=== PATIENT | male | born 1965 | race Two or more races ===

== ENCOUNTER 2024-01-30 06:05 | Day surgery (SDC) | payer OTHER ==
[~2024-01-30 06:05] MED LIST: SYNTHROID50 MCG PO
[2024-01-30] MEDS ORDERED: CEFAZOLIN SODIUM 1,000 MG VIAL ONE (08:02)
[2024-01-30] MEDS ORDERED: BUPIVACAINE HCL/Mpf 0.5% 10ML VIAL ONE (09:47)
[2024-01-30] MEDS ORDERED: SUGAMMADEX SODIUM 200 MG/2 ML VIAL IV ONE (10:57)
== END 2024-01-30 13:30 | disposition home or self-care (01) ==
LOC: CIR.AMB 06:05
PROVIDERS: ATTEND Orthopaedic Surgery Hand Surgery
DX: D21.11 Benign neoplasm of connective and other soft tissue of right upper limb, including shoulder (principal); R22.31 Localized swelling, mass and lump, right upper limb

== ENCOUNTER 2024-06-11 16:59 | Inpatient (IN) | payer OTHER ==
[~2024-06-11] VITALS: Ht 185.4 cm; Wt 104.3 kg
[2024-06-11 17:41] LABS: PH,URINE 5.5 (5.0-8.0); URINE APPEARANCE Clear; URINE BILIRRUBIN Negative (NEGATIVE); URINE BLOOD Negative; URINE COLOR Yellow; URINE GLUCOSE Negative (NEGATIVE); URINE LEUKOCYTE Negative; URINE NITRATE Negative; URINE PROTEIN Negative (NEGATIVE); URINE UROBILINOGEN 0.2 E.U./dl
[2024-06-11 17:44] LABS: URINE BACTERIA 4.8 uL (0.0-1933); URINE EPITHELIAL CELLS 3.4 uL (0.0-38.8); URINE KETONE 40 (NEGATIVE); URINE RBC 2.3 uL (0.0-20.8)
[2024-06-11 17:45] LABS: URINE CAST 0.44 uL (0.0-1.40); URINE WBC 1.1 uL (0.0-23.2)
[2024-06-11] MEDS ORDERED: SODIUM CHLORIDE 0.45 % 1,000 ML IV SCH (17:45)
[2024-06-11 17:46] LABS: ERYTHROCYTE SEDIMENTATION RATE 65 mm/hr; HEMATOCRIT 41.2 % (39.0-48.0); HEMOGLOBIN 14.1 g/dL (13-16.00); MEAN CELL VOLUME 84.4 fL (80.0-100.00); MEAN CORPUSCULAR HEMOGLOBIN 28.9 pg (27.00-32.0); MEAN CORPUSCULAR HGB CONC 34.3 g/dl (32.0-36.0); PLATELET COUNT 542 K/uL (150-450); RED BLOOD COUNT 4.88 M/uL (4.00-6.00); RED CELL DISTRIBUTION WIDTH 14.6 % (11.5-14.5)
[2024-06-11] MEDS ORDERED: MORPHINE SULFATE 4 MG/ML CARTRIDGE IV PRN (18:00)
[2024-06-11] MEDS ORDERED: ACETAMINOPHEN 500 MG GEL..CAP PO PRN (18:00)
[2024-06-11] MEDS ORDERED: KETOROLAC TROMETHAMINE 30 MG VIAL IV PRN (18:00)
[2024-06-11 18:03] LABS: INR 1.09; PARTIAL THROMBOPLASTIN TIME 29.4 SECONDS (22.0-34.0); PROTHROMBIN TIME 11.8 SECONDS (9.0-11.5)
[2024-06-11 18:34] LABS: ALBUMIN 3.6 gm/dL (3.4-5.0); BILIRUBIN TOTAL 0.77 mg/dL (0.3-1.2); CALCIUM 9.7 mg/dL (8.5-10.1); CREATININE SERUM 1.37 mg/dL (0.70-1.30); GFR 53.75; GLOBULINA 4.4 G/DL (2.4-3.5); POTASSIUM 4.33 mEq/L (3.5-5.1); PROSTATIC SPECIFIC ANTIGEN 3.43 NG/ML (0.010-4.00); TSH 4.13 uIU/mL (0.358-3.74)
[2024-06-11] MEDS ORDERED: VANCOMYCIN HCL 1,000 MG VIAL IV SCH (21:00)
[2024-06-12] MEDS ORDERED: METHYLPREDNISOLONE SOD SUCC 40 MG VIAL IV SCH (01:00)
[2024-06-12 01:43] VITALS: BP 131/80; O2SAT 97
[2024-06-12] MEDS ORDERED: LEVOTHYROXINE SODIUM 200 MCG TABLET PO SCH (06:00)
[2024-06-12 08:20] VITALS: BP 121/67; O2SAT 97
[2024-06-12] MEDS ORDERED: CEFTRIAXONE SODIUM 2,000 MG VIAL IV SCH (09:00)
[2024-06-12] MEDS ORDERED: PANTOPRAZOLE SODIUM 40 MG/VIAL VIAL IV SCH (09:00)
[2024-06-12] MEDS ORDERED: ENOXAPARIN SODIUM 40 MG/0.4 ML SYRINGE SUBCUTANEO SCH (09:00)
[2024-06-12 17:23] VITALS: BP 121/73
[2024-06-13 02:36] VITALS: BP 119/72; O2SAT 96
[2024-06-13 06:35] LABS: HEMATOCRIT 36.6 % (39.0-48.0); HEMOGLOBIN 12.1 g/dL (13-16.00); MEAN CELL VOLUME 85.6 fL (80.0-100.00); MEAN CORPUSCULAR HEMOGLOBIN 28.3 pg (27.00-32.0); MEAN CORPUSCULAR HGB CONC 33.1 g/dl (32.0-36.0); PLATELET COUNT 452 K/uL (150-450); RED BLOOD COUNT 4.27 M/uL (4.00-6.00); RED CELL DISTRIBUTION WIDTH 14.2 % (11.5-14.5)
[2024-06-13 06:59] LABS: ERYTHROCYTE SEDIMENTATION RATE > 130 mm/hr
[2024-06-13 07:13] LABS: ALBUMIN 2.9 gm/dL (3.4-5.0); BILIRUBIN TOTAL 0.38 mg/dL (0.3-1.2); CREATININE SERUM 1.11 mg/dL (0.70-1.30); GFR 68.53; GLOBULINA 3.8 G/DL (2.4-3.5); MAGNESIUM 2.3 mg/dL (1.8-2.4); PHOSPHOROUS 3.3 mg/dL (2.5-4.9); POTASSIUM 4.83 mEq/L (3.5-5.1); TOTAL PROTEIN 6.7 gm/dL (6.4-8.2); URIC ACID 8.5 mg/dL (3.5-8.5)
[2024-06-13 07:14] LABS: C-REACTIVE PROTEIN 16.3 MG/DL (0.00-0.29)
[2024-06-13] MEDS ORDERED: METHYLPREDNISOLONE SOD SUCC 40 MG VIAL IV SCH ×2 (09:00→21:00)
[2024-06-13 09:39] VITALS: BP 126/76
[2024-06-13 18:56] VITALS: BP 143/97
[2024-06-14 02:03] VITALS: BP 119/70
[2024-06-14 08:54] VITALS: BP 106/60
[2024-06-14 17:05] LABS: HEMATOCRIT 39.3 % (39.0-48.0); HEMOGLOBIN 13.1 g/dL (13-16.00); MEAN CELL VOLUME 84.9 fL (80.0-100.00); MEAN CORPUSCULAR HEMOGLOBIN 28.2 pg (27.00-32.0); MEAN CORPUSCULAR HGB CONC 33.2 g/dl (32.0-36.0); PLATELET COUNT 517 K/uL (150-450); RED BLOOD COUNT 4.63 M/uL (4.00-6.00); RED CELL DISTRIBUTION WIDTH 14.6 % (11.5-14.5)
[2024-06-14 17:28] LABS: ALBUMIN 2.9 gm/dL (3.4-5.0); BILIRUBIN TOTAL 0.32 mg/dL (0.3-1.2); CALCIUM 9.3 mg/dL (8.5-10.1); CREATININE SERUM 1.28 mg/dL (0.70-1.30); GFR 58.13; GLOBULINA 3.8 G/DL (2.4-3.5); MAGNESIUM 2.3 mg/dL (1.8-2.4); PHOSPHOROUS 3.2 mg/dL (2.5-4.9); POTASSIUM 5.38 mEq/L (3.5-5.1); TOTAL PROTEIN 6.7 gm/dL (6.4-8.2)
[2024-06-14 17:31] LABS: C-REACTIVE PROTEIN 7.5 MG/DL (0.00-0.29)
[2024-06-14 17:36] VITALS: BP 134/79
[2024-06-15 02:27] VITALS: BP 95/60; O2SAT 99
[2024-06-15 09:16] VITALS: BP 120/77
[2024-06-15 18:14] VITALS: BP 138/86; O2SAT 98
== END 2024-06-15 19:55 | disposition home or self-care (01) | DRG 554 ==
LOC: MEDI 16:59 → MEDJ 16:59
PROVIDERS: Internal Medicine Infectious Disease; ADMIT Internal Medicine; ATTEND Internal Medicine
PROC: BQ3DZZZ Magnetic Resonance Imaging (MRI) of Right Lower Leg (ICD-10-PCS; principal; 2024-06-11)
DX: M17.11 Unilateral primary osteoarthritis, right knee (principal); L03.116 Cellulitis of left lower limb; L03.115 Cellulitis of right lower limb; E03.9 Hypothyroidism, unspecified; N18.9 Chronic kidney disease, unspecified; E78.5 Hyperlipidemia, unspecified; M10.9 Gout, unspecified
CPT/HCPCS: 240; 73221

== ENCOUNTER 2025-04-12 16:04 | Emergency (ER) | payer OTHER ==
[~2025-04-12] VITALS: Ht 185.4 cm; Wt 104.3 kg
[2025-04-12] MEDS ORDERED: MITIGARE0.6 MG (16:24)
[2025-04-12] MEDS ORDERED: ALLOPURINOL200 MG (16:24)
[2025-04-12] MEDS ORDERED: ACETAMINOPHEN 500 MG GEL..CAP PO ONE (17:15)
[2025-04-12 19:41] LABS: ERYTHROCYTE SEDIMENTATION RATE 12 mm/hr (0-20)
[2025-04-12 19:42] LABS: BASO % 0.5 % (0.1-1.2); EOS # 0.27 (0.04-0.54); EOS % 3.1 % (0.7-7.0); LYMPH # 2.05 (1.18-3.74); LYMPH % 23.2 % (19.3-53.1); MEAN PLATELET VOLUME 8.80 fl (9.4-12.4); MONO # 0.85 (0.24-0.82); MONO % 9.6 % (4.7-12.5); NEUT # 5.58 (1.56-6.13); NEUT % 63.3 % (34.0-71.1); RED CELL DISTRIBUTION WIDTH 12.6 % (11.6-14.4)
[2025-04-12 20:15] LABS: ALT/SGPT 21.0 U/L (12-78); AST/SGOT 11.0 U/L (15-37); BILIRUBIN TOTAL 0.38 mg/dL (0.3-1.2); BUN CREA RATIO 11.0 (7.0-25.0); CREATININE SERUM 1.3 mg/dL (0.70-1.30); GFR 56.9; GLOBULINA 3.9 G/DL (2.4-3.5); GLUCOSE FASTING 101.0 mg/dL (65-100); OSMOLALITY SERUM 284.0 MOSM/KG (275-295)
[2025-04-12] MEDS ORDERED: DEXAMETHASONE SODIUM PHOSPHATE 4 MG/ML VIAL IM ONE (22:15)
[2025-04-12] MEDS ORDERED: KETOROLAC TROMETHAMINE 30 MG VIAL IM ONE (22:15)
[2025-04-12] MEDS ORDERED: INDOMETHACIN50 M1 PO (22:17)
[2025-04-12] MEDS ORDERED: COLCHICINE0.6 MG PO (22:17)
[2025-04-12] MEDS ORDERED: BACTRIM DS TAB1 EACH PO (22:27)
== END 2025-04-12 23:02 | disposition home or self-care (01) ==
LOC: ER 16:04
PROVIDERS: General Practice
DX: R60.0 Localized edema (principal); M06.8A Other specified rheumatoid arthritis, other specified site; E03.8 Other specified hypothyroidism; M10.9 Gout, unspecified